=== PATIENT | female | born 1985 | race Hispanic/Latino ===

== ENCOUNTER 2018-08-21 09:40 | Emergency (ER) | payer OTHER ==
[2018-08-21] MEDS ORDERED: IBUPROFEN 600 MG TABLET ONE (10:24)
[2018-08-21] MEDS ORDERED: ACETAMINOPHEN EXTRA STRENGTH 500 MG TABLET ONE (10:24)
== END 2018-08-21 10:31 | disposition home or self-care (01) ==
LOC: EDH 09:40
DX: S93.492A Sprain of other ligament of left ankle, initial encounter (principal); X50.1XXA Overexertion from prolonged static or awkward postures, initial encounter; Y93.01 Activity, walking, marching and hiking; Y92.89 Other specified places as the place of occurrence of the external cause; Y99.8 Other external cause status
CPT/HCPCS: 73610